=== PATIENT | male | born 1940 | race Caucasian/White ===

== ENCOUNTER 2019-04-02 14:23 | Inpatient (IN) ==
[2019-04-02] MEDS ORDERED: SODIUM CHLORIDE 0.9% 500 ML IV ONE (15:23)
[2019-04-02 15:57] LABS: Base Excess VBG 2.9 mEq/L; HCO3 VBG 29 mmol/L; Oxygen Saturation VBG < 60.0 %; PCO2 VBG 49 mmHg (38-50); PO2 VBG 26 mmHg; pH VBG 7.38 (7.36-7.41)
[2019-04-02 16:06] LABS: INR 1.1 (0.9-1.1); Partial Thromboplastin Time 25.9 Seconds (21.0-31.0); Prothrombin Time 11.5 Seconds (9.0-12.0)
[2019-04-02 16:12] LABS: Alanine Aminotransferase 106 U/L (12-78); Albumin Level 2.7 gm/dl (3.4-5.0); Aspartate Aminotransferase 57 U/L (15-37); Blood Urea Nitrogen 17 mg/dl (7-18); Calcium 8.4 mg/dl (8.5-10.1); Carbon Dioxide 28 mmol/L (21-32); Chloride 105 mmol/L (98-107); Creatinine Clr Calc Pharmacy 67.4 ml/min; Est GFR (African American) 88.4; Est GFR (Non-African American) 76.3; Glucose 102 mg/dl (70-99); Magnesium 2.1 mg/dl (1.8-2.4); Potassium 4.4 mmol/L (3.5-5.1); Sodium 139 mmol/L (136-145)
--- NOTE | 2019-04-02 16:13 | XRay Report ---
XR chest 1V portable CLINICAL HISTORY: SEPSIS dyspnea COMPARISON STUDY: 04/01/2019 FINDINGS: Mild cardiac enlargement. Prior median sternotomy. Lungs are clear. Diaphragms are smooth. IMPRESSION: Chronic and postoperative change. No acute process. ACT 112: Negative or not required by law. The above report was generated using voice recognition software. It may contain grammatical, syntax or spelling errors. Electronically signed by: Jon Carroll M.D. 04/02/2019 4:12 PM
[2019-04-02 16:17] LABS: Albumin Globulin Ratio 0.6 (0.9-2); Alkaline Phosphatase 86 U/L (45-117); Bilirubin,Total 0.3 mg/dl (0.2-1); Globulin 4.3 gm/dl (2.5-4.0); Troponin I < 0.015 ng/ml (0-0.045)
--- NOTE | 2019-04-02 16:20 | Electrocardiogram Report ---
Test Reason : Blood Pressure : / mmHG Vent. Rate : 069 BPM Atrial Rate : 069 BPM P-R Int : 126 ms QRS Dur : 104 ms QT Int : 406 ms P-R-T Axes : -07 060 029 degrees QTc Int : 435 ms Normal sinus rhythm Normal ECG When compared with ECG of 01-APR-2019 14:51, Aberrant conduction is no longer Present Confirmed by Saud Hill ([id number]) on 04/02/2019 4:19:52 PM Referred By: Confirmed By:Saud Hill
[2019-04-02 16:37] LABS: Basophils # (auto) 0.08 K/uL (0-0.2); Basophils % (auto) 0.8 %; Eosinophils # (auto) 0.19 K/uL (0-0.5); Eosinophils % (auto) 1.9 %; Hematocrit (blood only) 38.2 % (42-52); Hemoglobin 12.1 g/dL (14.0-18.0); Immature Granulocytes # (auto) 0.11 K/uL (0.00-0.02); Immature Granulocytes % (auto) 1.1 %; Lymphocytes # (auto) 1.27 K/uL (1.2-3.4); Lymphocytes % (auto) 12.9 %; Mean Corpuscular Hgb Conc 31.7 g/dL (32-36); Mean Corpuscular Volume 94.6 fL (80-100); Mean Platelet Volume 10.5 fL (7.4-10.4); Monocytes # (auto) 1.35 K/uL (0.11-0.59); Monocytes % (auto) 13.8 %; Neutrophils # (auto) 6.81 K/uL (1.4-6.5); Neutrophils % (auto) 69.5 %; Platelet Count 313 K/uL (130-400); RDW Coefficient of Variation 15.1 % (11.5-14.5); RDW Standard Deviation 52.4 fL (36.4-46.3); Red Blood Count 4.04 M/uL (4.7-6.1); White Blood Count 9.81 K/uL (4.8-10.8)
[2019-04-02 16:44] LABS: iSTAT Creatinine 0.9 mg/dl (0.6-1.3); iSTAT Hemoglobin 11.6 g/dl (14.0-18.0); iSTAT Ionized Calcium 1.12 mmol/l (1.12-1.32); iSTAT Potassium 4.4 mEq/L (3.3-5.0)
[2019-04-02 17:00] LABS: Appearance Urine Clear (Clear); Bacteria Urine Automated Negative (Negative); Bilirubin Urine Negative (Negative); Blood Urine Negative (Negative); Color Urine Yellow; Glucose Urine UA Negative (Negative); Ketones Urine Negative (Negative); Leukocyte Esterase Urine Trace (Negative); Nitrite Urine Negative (Negative); Urobilinogen Urine Negative (Negative); pH Urine 7.5 (4.5-7.5)
[2019-04-02 17:02] LABS: Protein Urine 1+ (Negative)
[2019-04-02 17:03] LABS: Sulfosalicylic Acid Urine Positive (Negative)
[2019-04-02] MEDS ORDERED: cefTRIAXone SODIUM 2,000 MG/70 ML BAG IV STA (17:18)
--- NOTE | 2019-04-02 18:13 | History & Physical Report ---
Date of Service April 02, 2019 Assessment & Plan (1) Bacteremia: (2) Urinary tract infection: This is an 78-year-old male with a PMH of hypertension, CAD (s/p CABG), NARDA and other medical problems listed below who presents after being informed of E. coli UTI and 1/2 positive blood cultures. -Seen in ED yesterday for dysuria and urinary urgency and found to have abnormal UA. Received dose of Rocephin and discharged home on cefdinir and probiotics -Urine culture from Apr 01 grew e coli with >100,000 CFU/ml with sensitivities to follow. One of two blood cultures from yesterday grew gram negative bacilli with sensitivities to follow -Urinary symptoms have resolved and patient has remained afebrile. Had leukocytosis of 20.78k yesterday and today's white blood cell count has improved to 9.8k. Lactic acid is normal -Plan to continue Rocephin empirically until sensitivities result on blood culture. Another set of cultures were repeated today (3) CAD (coronary artery disease): Continue aspirin, statin, carvedilol (4) HLD (hyperlipidemia): Continue statin, Zetia (5) Blocked tear duct: Continue snf low-dose doxycycline prescribed by fire sprinkler fitter (6) Iron deficiency anemia: Continue iron supplement DVT Ppx: SQ heparin Code status: FULL PCP: Julio César Dispo: Admitted to [facility]. Plan to return home once medically stable. Patient seen in collaboration with Dr. St. Please see addendum. History of Present Illness Chief Complaint: Positive blood cultures Primary Care Provider: Napoleon Angela MD This is an 78-year-old male with a PMH of hypertension, CAD (s/p CABG), NARDA and other medical problems listed below who presents after being informed of positive blood culture. Patient was seen in ED yesterday for chest pain as well as urinary symptoms and UA was abnormal. Was discharged home on cefdinir and probiotics. Urine culture from Apr 01 grew e coli with >100,000 CFU/ml with sensitivities to follow. One of two blood cultures from yesterday grew gram negative bacilli with sensitivities to follow. Patient was called and instructed to return to ED for further IV antibiotic treatment until sensitivities result. Patient feels better since yesterday and has remained afebrile. Had leukocytosis of 20.78k yesterday and was given dose of ceftriaxone in ED and discharged on cefdinir. Today, white blood cell count improved to 9.8k. Denies any chills, lightheadedness, visual changes, chest pain, palpitations, shortness of breath, nausea, vomiting, abdominal pain, diarrhea or constipation. Dysuria and urinary urgency have resolved. Of note, patient has follow-up postoperative appointment at the [facility] on for laminectomy performed this past January. Is agreeable to await culture sensitivities prior to discharge. Discussed with son on the phone, who plans to contact surgeon's office tomorrow and try to reschedule postop appointment. Allergies Allergy/AdvReac Type Severity Reaction Status Date / Time Penicillins Allergy Rash Unverified 04/01/19 12:41 Home Medications Home Medications Medication Instructions Recorded Confirmed Type aspirin [Aspirin Low Dose] 81 mg PO QAM 04/01/19 04/02/19 History cefdinir 300 mg PO BID 10 Days #20 cap 04/01/19 04/02/19 Rx jjgisqel-klt-radxi-vit K-lycop 1 tab PO QAM 04/01/19 04/02/19 History [One-A-Day Men's 50 Plus] Saccharomyces boulardii [Florastor] 250 mg PO QAM 04/02/19 04/02/19 History amlodipine 5 mg PO QAM 04/02/19 04/02/19 History atorvastatin 80 mg PO PM 04/02/19 04/02/19 History calcium carbonate-vitamin D3 1 tab PO QAM 04/02/19 04/02/19 History [Calcium 500 + D] carvedilol 3.125 mg PO BID 04/02/19 04/02/19 History doxycycline hyclate 50 mg PO QAM 04/02/19 04/02/19 History ezetimibe [Zetia] 10 mg PO HS 04/02/19 04/02/19 History ferrous sulfate 325 mg PO BID 04/02/19 04/02/19 History lisinopril 40 mg PO QAM 04/02/19 04/02/19 History omega 4-nzy-ggr-fish oil [Fish Oil] 1 cap PO QAM 04/02/19 04/02/19 History Past Med/Surg History Medical History Blocked tear duct CAD (coronary artery disease) HLD (hyperlipidemia) HTN (hypertension) Iron deficiency anemia Mitral valve regurgitation Surgical History H/O laminectomy History of colonoscopy History of coronary artery bypass graft Family History Other COPD (chronic obstructive pulmonary disease) Myocardial infarction Social History Preferred Language: Maori Communication Ability: Effective Sample Worker Required: No Beliefs That Will Affect Care: None Current Living Situation: Alone Feels Safe at Home: Yes Safety Concerns: Feels Safe At This Time Smoking Status: Former smoker Do You Dip or Chew Tobacco: No ; Second Hand Exposure: No ; Tobacco Cessation Education Requested by Patient: No Hx Alcohol Use: Yes Alcohol Intake Frequency: Holidays/Special Occasions Hx Substance Use: No Review of Systems Review of Systems: At least ten systems reviewed and negative except as noted in the HPI. Physical Exam Physical Exam: General Appearance: WD/WN, vitals as above, NAD, sitting up in bed, pleasant, conversing easily Head: normocephalic, atraumatic Eyes: normal inspection, PERRL, conjunctivae normal, anicteric sclerae ENT: external ear and nose normal, oropharynx normal Neck: trachea midline, no thyromegaly normal visual inspection Respiratory: lungs clear to auscultation, no wheeze, rales, rhonchi. Normal insp/exp effort, no accessory muscle use Cardiovascular: regular rate, rhythm, no murmur, normal peripheral pulses. Vess els: no JVD or carotid bruit Chest: normal inspection of chest Abdomen/GI: normal bowel sounds, soft, nontender, no hepatosplenomegaly Extremities/Musculoskeletal: no cyanosis or clubbing, extremities motor strength 5/5 Neurologic: PERRL, EOMI, accommodation nl, no face palsy, no dysarthria, CN's II-XI intact bilaterally and moves all extremities Psychiatric: A+Ox3, euthymic affect Skin: no rashes, normal color, warm/dry Results & Data Vital Signs (Past 12 Hours) Vital Signs Temp Pulse Pulse Resp BP BP Pulse Ox 04/02/19 17:33 71 20 137/73 97 04/02/19 15:54 98 04/02/19 14:38 36.8 C 80 20 142/74 H 96 Laboratory Results Short CBC 04/02/19 Range/Units 15:43 WBC 9.81 (4.8-10.8) K/uL Hgb 12.1 L (14.0-18.0) g/dL Hct 38.2 L (42-52) % Plt Count 313 (130-400) K/uL BMP 04/02/19 15:43 Sodium 139 Potassium 4.4 Chloride 105 Carbon Dioxide 28 BUN 17 Creatinine 0.94 Glucose 102 H Calcium 8.4 L Cardiac Enzymes 04/02/19 Range/Units 15:43 Troponin I < 0.015 (0-0.045) ng/ml Liver Function 04/02/19 Range/Units 15:43 Total Bilirubin 0.3 (0.2-1) mg/dl AST 57 H (15-37) U/L ALT 106 H (12-78) U/L Alkaline Phosphatase 86 (45-117) U/L Albumin 2.7 L (3.4-5.0) gm/dl Urine 04/02/19 Range/Units 16:25 Urine Color Yellow Urine Appearance Clear (Clear) Urine pH 7.5 (4.5-7.5) Ur Specific [place] 1.020 (1.000-1.030) Urine Protein 1+ H (Negative) Urine Glucose (UA) Negative (Negative) Diagnostic Findings CXR: IMPRESSION: Chronic and postoperative change. No acute process. Supervising Physician Co-Signing Physician Notes Pt was seen and examined. Agreed with Tanna JACKSON exam, assessment and plan. 78-year-old male with a PMH of hypertension, CAD (s/p CABG), NARDA presents to the ER after calling for positive blood culture. Pt was in the ER yesterday for dysuria and urinary urgency. Urine cx and blood cx were collected in the ER and pt was discharged home. He received a call for positive urine cx and blood cx. Urine cx grew E.coli. Continue IV Rocephin. Will repeat blood cx. Follow up WBC. Continue monitor closely. MD Alma Rosa (1) Urinary tract infection Hematuria presence: with hematuria Urinary tract infection type: acute cystitis Qualified Code(s): N30.01 - Acute cystitis with hematuria
--- NOTE | 2019-04-02 18:46 | Emergency Department Note ---
Entered by Izabela Babcock acting as a scribe for Minh Harmon MD History of Present Illness General Chief complaint: Abnormal Labs/Diagnostic Testing Stated complaint: SENT BY DR HARMON ABNORMAL LABS Time Seen by Provider: 04/02/19 15:22 Source: patient History of Present Illness Onset (ago): hour(s) 3 Location: head (Abnormal labs) Severity: similar to prior episodes Pain Consistency: + other (episode) Maximum Pain Intensity: 0 Quality: + other (abnormal labs) Exacerbated By: + movement Associated symptoms: + shortness of breath and + other (Positive abnormal labs, resolution of urinary symptoms. Negative diarrhea, palpitations. ); no nausea/vomiting Treatments prior to arrival: other (antibiotic) The patient is an 78 year old male presenting to the Emergency Room complaining of an episode of abnormal labs occurring 3 hours ago. The patient reports that his lab cultures which were done 1 day ago in the [facility] ED were positive. He states that he is still short of breath. He explains that walking around worsens his shortness of breath. He notes that his urinary symptoms which he was experiencing 1 day ago have begun to resolve. He adds that he took an antibiotic GRINDER HAND. The patient denies nausea, vomiting, diarrhea and palpitations. Home Medications Home Medications Medication Instructions Recorded Confirmed Type aspirin [Aspirin Low Dose] 81 mg PO QAM 04/01/19 04/02/19 History cefdinir 300 mg PO BID 10 Days #20 cap 04/01/19 04/02/19 Rx [id number]-vit K-lycop 1 tab PO QAM 04/01/19 04/02/19 History [One-A-Day Men's 50 Plus] Saccharomyces boulardii [Florastor] 250 mg PO QAM 04/02/19 04/02/19 History amlodipine 5 mg PO QAM 04/02/19 04/02/19 History atorvastatin 80 mg PO PM 04/02/19 04/02/19 History calcium carbonate-vitamin D3 1 tab PO QAM 04/02/19 04/02/19 History [Calcium 500 + D] carvedilol 3.125 mg PO BID 04/02/19 04/02/19 History doxycycline hyclate 50 mg PO QAM 04/02/19 04/02/19 History ezetimibe [Zetia] 10 mg PO HS 04/02/19 04/02/19 History ferrous sulfate 325 mg PO BID 04/02/19 04/02/19 History lisinopril 40 mg PO QAM 04/02/19 04/02/19 History omega [id number]-avq-rpz-fish oil [Fish Oil] 1 cap PO QAM 04/02/19 04/02/19 History Allergies Allergy/AdvReac Type Severity Reaction Status Date / Time Penicillins Allergy Rash Unverified 04/01/19 12:41 Past Med/Surg History Medical History Blocked tear duct CAD (coronary artery disease) HLD (hyperlipidemia) HTN (hypertension) Iron deficiency anemia Mitral valve regurgitation Surgical History H/O laminectomy History of colonoscopy History of coronary artery bypass graft Family History Other COPD (chronic obstructive pulmonary disease) Myocardial infarction Social History Preferred Language: Cuban Communication Ability: Effective Brick Chimney Supervisor Required: No Beliefs That Will Affect Care: None Current Living Situation: Alone Feels Safe at Home: Yes Safety Concerns: Feels Safe At This Time Smoking Status: Former smoker Do You Dip or Chew Tobacco: No ; Second Hand Exposure: No ; Tobacco Cessation Education Requested by Patient: No Hx Alcohol Use: Yes Alcohol Intake Frequency: Holidays/Special Occasions Hx Substance Use: No Review of Systems See HPI for pertinent positives & negatives. and A total of 10 systems reviewed and were otherwise negative Physical Exam Vital Signs Vital Signs - 24 hr 04/02/19 14:38 04/02/19 15:54 04/02/19 17:33 Temperature 36.8 C Temperature Source Oral Pulse Rate 80 Pulse Rate [Left Finger] 71 Respiratory Rate 20 20 Respiratory Effort / Characteristics Non-Labored Respiratory Depth Normal Blood Pressure 142/74 H Blood Pressure [Left Arm] 137/73 Blood Pressure Mean 96 Blood Pressure Mean [Left Arm] 94 Pulse Oximetry 96 98 97 Oxygen Delivery Method Room Air Room Air Room Air Sepsis Recent Fever Within 48 Hours No Sepsis Action Taken by Nursing No Action Required GENERAL: Awake, alert, fatigued-appearing, in no distress HENT: Normocephalic, atraumatic. Oropharynx with dry mucous membranes and otherwise unremarkable. EYES: Normal conjunctiva. Sclera non-icteric. NECK: Supple. No nuchal rigidity. FROM. No JVD. RESPIRATORY: CTAB. CARDIAC: Regular rate, normal rhythm. Extremities warm and well perfused. Pulses equal. ABDOMEN: Soft, non-distended. No tenderness to palpation. No rebound or g uarding. No masses. RECTAL: Deferred. MUSCULOSKELETAL: Chest examination reveals no tenderness. The back is symmetrical on inspection without obvious abnormality. There is no CVA tenderness to palpation. No joint edema. LOWER EXTREMITIES: Calves are equal size bilaterally and non-tender. No edema. N o discoloration. NEURO: Normal sensorium. No sensory or motor deficits noted. SKIN: No rash or jaundice noted. Course Course 1610: The patient was evaluated in room D3B, and a complete history and physical examination were performed. 1716: I discussed the patients case with Tanna Badillo PA-C. Dr. P[facility] will evaluate the patient for further management. 1722: I updated the patient at this time. Administered Medications Atorvastatin Calcium (Lipitor) 80 mg PO PM AMISHA Stop: 05/02/19 20:59 Last Admin: 04/02/19 20:12 Dose: 80 mg Documented by: [id number] Carvedilol (Coreg) 3.125 mg PO BID AMISHA Stop: 05/02/19 20:59 Last Admin: 04/02/19 20:13 Dose: 3.125 mg Documented by: [id number] Ezetimibe (Zetia) 10 mg PO HS AMISHA Stop: 05/02/19 20:59 Last Admin: 04/02/19 20:14 Dose: 10 mg Documented by: [id number] Ferrous Sulfate (Feosol) 325 mg PO 0700,2100 AMISHA Stop: 05/02/19 20:59 Last Admin: 04/02/19 20:14 Dose: 325 mg Documented by: [id number] Heparin Sodium (Porcine) (Heparin Sodium (Porcine)) 5,000 units SQ Q8 AMISHA Stop: 05/02/19 21:59 Last Admin: 04/02/19 20:16 Dose: 5,000 units Documented by: [id number] Cosigned by: [id number] Saccharomyces Boulardii (Florastor) 250 mg PO BID AMISHA Stop: 05/02/19 20:59 Last Admin: 04/02/19 20:12 Dose: 250 mg Documented by: [id number] Discontinued Medications Sodium Chloride (Nss) 500 mls @ 999 mls/hr IV .Q31M ONE Stop: 04/02/19 15:53 Last Infusion: 04/02/19 17:31 Dose: 0 mls/hr Documented by: [id number] Admin: 04/02/19 16:20 Dose: 999 mls/hr Documented by: [id number] Ceftriaxone Sodium (Rocephin) 2,000 mg in 70 mls @ 140 mls/hr IV NOW STA Stop: 04/02/19 17:47 Last Infusion: 04/02/19 18:04 Dose: 0 mls/hr Documented by: [id number] Admin: 04/02/19 17:31 Dose: 140 mls/hr Documented by: [id number] Medical Decision Making Differential Diagnosis Differential Diagnosis includes but is not limited to dehydration, stroke, anemia, hypoglycemia, hyponatremia, hypernatremia, urinary tract infection, pneumonia, bronchitis, sepsis, gastroenteritis, additional abdominal pathology, metabolic abnormalities and infections. Medical Records Attestation: I reviewed the patient's medical records. Home Medications Current Medication List: was personally reviewed by me Laboratory Data Attestation: I reviewed the patient's lab results. Result diagrams: 04/02/19 15:43 04/02/19 15:43 Lab Results 04/02/19 04/02/19 04/02/19 Range/Units 15:43 15:43 15:43 WBC 9.81 (4.8-10.8) K/uL RBC 4.04 L (4.7-6.1) M/uL Hgb 12.1 L (14.0-18.0) g/dL POC Hgb (14.0-18.0) g/dl Hct 38.2 L (42-52) % POC Hct (42-52) % MCV 94.6 (80-100) fL MCH 30.0 (25-34) pg MCHC 31.7 L (32-36) g/dL RDW Std Deviation 52.4 H (36.4-46.3) fL RDW Coeff of Scott 15.1 H (11.5-14.5) % Plt Count 313 (130-400) K/uL MPV 10.5 H (7.4-10.4) fL Immature Gran % (Auto) 1.1 % Neut % (Auto) 69.5 % Lymph % (Auto) 12.9 % [place] % (Auto) 13.8 % Eos % (Auto) 1.9 % Baso % (Auto) 0.8 % Immature Gran # (Auto) 0.11 H (0.00-0.02) K/uL Neut # (Auto) 6.81 H (1.4-6.5) K/uL Lymph # (Auto) 1.27 (1.2-3.4) K/uL [place] # (Auto) 1.35 H (0.11-0.59) K/uL Eos # (Auto) 0.19 (0-0.5) K/uL Baso # (Auto) 0.08 (0-0.2) K/uL PT 11.5 (9.0-12.0) Seconds INR 1.1 (0.9-1.1) APTT 25.9 (21.0-31.0) Seconds PTT Ratio 1.0 VBG pH (7.36-7.41) VBG pCO2 (38-50) mmHg VBG pO2 mmHg VBG HCO3 mmol/L VBG O2 Saturation % VBG Base Excess mEq/L Barometric Pressure mm/Hg POC Sodium (135-144) mEq/L Sodium 139 (136-145) mmol/L POC Potassium (3.3-5.0) mEq/L Potassium 4.4 (3.5-5.1) mmol/L POC Chloride (101-112) mEq/L Chloride 105 (98-107) mmol/L Carbon Dioxide 28 (21-32) mmol/L POC Total CO2 (24-31) mEq/l Anion Gap 6.0 (3-11) POC Anion Gap (16-25) mmol/L POC BUN (7-18) mg/dl BUN 17 (7-18) mg/dl Creatinine 0.94 (0.6-1.4) mg/dl POC Creatinine (0.6-1.3) mg/dl Est Cr Clr Drug Dosing 67.4 ml/min Est GFR ( Amer) 88.4 Est GFR (Non-Af Amer) 76.3 BUN/Creatinine Ratio 18.0 (10-20) Glucose 102 H (70-99) mg/dl POC Glucose (other) (70-99) mg/dl Lactate (0.4-2.0) mmol/L Calcium 8.4 L (8.5-10.1) mg/dl POC Ioniz Calcium Ronit (1.12-1.32) mmol/l Phosphorus 3.0 (2.5-4.9) mg/dl Magnesium 2.1 (1.8-2.4) mg/dl Total Bilirubin 0.3 (0.2-1) mg/dl AST 57 H (15-37) U/L ALT 106 H (12-78) U/L Alkaline Phosphatase 86 (45-117) U/L Troponin I < 0.015 (0-0.045) ng/ml Total Protein 7.0 (6.4-8.2) gm/dl Albumin 2.7 L (3.4-5.0) gm/dl Globulin 4.3 H (2.5-4.0) gm/dl Albumin/Globulin Ratio 0.6 L (0.9-2) Urine Color Urine Appearance (Clear) Urine pH (4.5-7.5) Ur Specific [place] (1.000-1.030) Urine Protein (Negative) Urine Glucose (UA) (Negative) Urine Ketones (Negative) Urine Blood (Negative) Urine Nitrite (Negative) Urine Bilirubin (Negative) Urine Urobilinogen (Negative) Ur Leukocyte Esterase (Negative) Urine WBC (Auto) (0-5) /hpf Urine RBC (Auto) (0-4) /hpf U Hyaline Cast (Auto) (0-5) /lpf U Epithel Cells (Auto) (0-5) /lpf Urine Bacteria (Auto) (Negative) 04/02/19 04/02/19 04/02/19 Range/Units 15:43 15:43 16:25 WBC (4.8-10.8) K/uL RBC (4.7-6.1) M/uL Hgb (14.0-18.0) g/dL POC Hgb (14.0-18.0) g/dl Hct (42-52) % POC Hct (42-52) % MCV (80-100) fL MCH (25-34) pg MCHC (32-36) g/dL RDW Std Deviation (36.4-46.3) fL RDW Coeff of Scott (11.5-14.5) % Plt Count (130-400) K/uL MPV (7.4-10.4) fL Immature Gran % (Auto) % Neut % (Auto) % Lymph % (Auto) % [place] % (Auto) % Eos % (Auto) % Baso % (Auto) % Immature Gran # (Auto) (0.00-0.02) K/uL Neut # (Auto) (1.4-6.5) K/uL Lymph # (Auto) (1.2-3.4) K/uL [place] # (Auto) (0.11-0.59) K/uL Eos # (Auto) (0-0.5) K/uL Baso # (Auto) (0-0.2) K/uL PT (9.0-12.0) Seconds INR (0.9-1.1) APTT (21.0-31.0) Seconds PTT Ratio VBG pH 7.38 (7.36-7.41) VBG pCO2 49 (38-50) mmHg VBG pO2 26 mmHg VBG HCO3 29 mmol/L VBG O2 Saturation < 60.0 % VBG Base Excess 2.9 mEq/L Barometric Pressure 729.1 mm/Hg POC Sodium (135-144) mEq/L Sodium (136-145) mmol/L POC Potassium (3.3-5.0) mEq/L Potassium (3.5-5.1) mmol/L POC Chloride (101-112) mEq/L Chloride (98-107) mmol/L Carbon Dioxide (21-32) mmol/L POC Total CO2 (24-31) mEq/l Anion Gap (3-11) POC Anion Gap (16-25) mmol/L POC BUN (7-18) mg/dl BUN (7-18) mg/dl Creatinine (0.6-1.4) mg/dl POC Creatinine (0.6-1.3) mg/dl Est Cr Clr Drug Dosing ml/min Est GFR ( Amer) Est GFR (Non-Af Amer) BUN/Creatinine Ratio (10-20) Glucose (70-99) mg/dl POC Glucose (other) (70-99) mg/dl Lactate 0.8 (0.4-2.0) mmol/L Calcium (8.5-10.1) mg/dl POC Ioniz Calcium Ronit (1.12-1.32) mmol/l Phosphorus (2.5-4.9) mg/dl Magnesium (1.8-2.4) mg/dl Total Bilirubin (0.2-1) mg/dl AST (15-37) U/L ALT (12-78) U/L Alkaline Phosphatase (45-117) U/L Troponin I (0-0.045) ng/ml Total Protein (6.4-8.2) gm/dl Albumin (3.4-5.0) gm/dl Globulin (2.5-4.0) gm/dl Albumin/Globulin Ratio (0.9-2) Urine Color Yellow Urine Appearance Clear (Clear) Urine pH 7.5 (4.5-7.5) Ur Specific [place] 1.020 (1.000-1.030) Urine Protein 1+ H (Negative) Urine Glucose (UA) Negative (Negative) Urine Ketones Negative (Negative) Urine Blood Negative (Negative) Urine Nitrite Negative (Negative) Urine Bilirubin Negative (Negative) Urine Urobilinogen Negative (Negative) Ur Leukocyte Esterase Trace H (Negative) Urine WBC (Auto) 10-30 H (0-5) /hpf Urine RBC (Auto) 5-10 H (0-4) /hpf U Hyaline Cast (Auto) 1-5 (0-5) /lpf U Epithel Cells (Auto) 10-20 H (0-5) /lpf Urine Bacteria (Auto) Negative (Negative) 04/02/19 Range/Units 16:26 WBC (4.8-10.8) K/uL RBC (4.7-6.1) M/uL Hgb (14.0-18.0) g/dL POC Hgb 11.6 L (14.0-18.0) g/dl Hct (42-52) % POC Hct 34 L (42-52) % MCV (80-100) fL MCH (25-34) pg MCHC (32-36) g/dL RDW Std Deviation (36.4-46.3) fL RDW Coeff of Scott (11.5-14.5) % Plt Count (130-400) K/uL MPV (7.4-10.4) fL Immature Gran % (Auto) % Neut % (Auto) % Lymph % (Auto) % [place] % (Auto) % Eos % (Auto) % Baso % (Auto) % Immature Gran # (Auto) (0.00-0.02) K/uL Neut # (Auto) (1.4-6.5) K/uL Lymph # (Auto) (1.2-3.4) K/uL [place] # (Auto) (0.11-0.59) K/uL Eos # (Auto) (0-0.5) K/uL Baso # (Auto) (0-0.2) K/uL PT (9.0-12.0) Seconds INR (0.9-1.1) APTT (21.0-31.0) Seconds PTT Ratio VBG pH (7.36-7.41) VBG pCO2 (38-50) mmHg VBG pO2 mmHg VBG HCO3 mmol/L VBG O2 Saturation % VBG Base Excess mEq/L Barometric Pressure mm/Hg POC Sodium 138 (135-144) mEq/L Sodium (136-145) mmol/L POC Potassium 4.4 (3.3-5.0) mEq/L Potassium (3.5-5.1) mmol/L POC Chloride 101 (101-112) mEq/L Chloride (98-107) mmol/L Carbon Dioxide (21-32) mmol/L POC Total CO2 27 (24-31) mEq/l Anion Gap (3-11) POC Anion Gap 16.0 (16-25) mmol/L POC BUN 17 (7-18) mg/dl BUN (7-18) mg/dl Creatinine (0.6-1.4) mg/dl POC Creatinine 0.9 (0.6-1.3) mg/dl Est Cr Clr Drug Dosing ml/min Est GFR ( Amer) Est GFR (Non-Af Amer) BUN/Creatinine Ratio (10-20) Glucose (70-99) mg/dl POC Glucose (other) 108 H (70-99) mg/dl Lactate (0.4-2.0) mmol/L Calcium (8.5-10.1) mg/dl POC Ioniz Calcium Ronit 1.12 (1.12-1.32) mmol/l Phosphorus (2.5-4.9) mg/dl Magnesium (1.8-2.4) mg/dl Total Bilirubin (0.2-1) mg/dl AST (15-37) U/L ALT (12-78) U/L Alkaline Phosphatase (45-117) U/L Troponin I (0-0.045) ng/ml Total Protein (6.4-8.2) gm/dl Albumin (3.4-5.0) gm/dl Globulin (2.5-4.0) gm/dl Albumin/Globulin Ratio (0.9-2) Urine Color Urine Appearance (Clear) Urine pH (4.5-7.5) Ur Specific [place] (1.000-1.030) Urine Protein (Negative) Urine Glucose (UA) (Negative) Urine Ketones (Negative) Urine Blood (Negative) Urine Nitrite (Negative) Urine Bilirubin (Negative) Urine Urobilinogen (Negative) Ur Leukocyte Esterase (Negative) Urine WBC (Auto) (0-5) /hpf Urine RBC (Auto) (0-4) /hpf U Hyaline Cast (Auto) (0-5) /lpf U Epithel Cells (Auto) (0-5) /lpf Urine Bacteria (Auto) (Negative) Imaging Data Radiologist's Impression: Radiology results as stated below per my review and the radiologist's interpretation: XR chest 1V portable CLINICAL HISTORY: SEPSIS dyspnea COMPARISON STUDY: 04/01/2019 FINDINGS: Mild cardiac enlargement. Prior median sternotomy. Lungs are clear. Diaphragms are smooth. IMPRESSION: Chronic and postoperative change. No acute process. ACT 112: Negative or not required by law. The above report was generated using voice recognition software. It may contain grammatical, syntax or spelling errors. Electronically signed by: Jon Carroll M.D. 04/02/2019 4:12 PM ECG Data Attestation: I personally reviewed and interpreted this ECG as follows: Indication: + toxicologic Rate (beats per minute): 69 Rhythm: + normal sinus ECG [place]: + Normal ECG ST segments: no ST depression and no ST elevation ECG Findings: + Other (QT-c 435.); no PACs and no PVCs Blood Pressure Blood Pressure Findings: Elevated blood pressure Blood Pressure Disposition: further management by hospitalist LILIA Rawls The patient is a pleasant 78-year-old gentleman with a past medical history of CAD who presents emergency department after being contacted regarding a positive blood culture in the setting of a urinary tract infection growing E. coli after being seen in emergency department yesterday per HPI. Of note, the patient reports feeling improved after being treated yesterday with IV ceftriaxone and discharged with Cefdinir. He does still admit to some generalized weakness and shortness of breath however. On arrival the patient is in no acute distress, afebrile stable vital signs. Exam is otherwise unremarkable. EKG without overt acute ischemia. Chest x-ray negative for acute process with improved left basilar aeration. WBC now within normal limits improved from 20K yesterday. H/H 12.1/38.2 approximate 2 prior values. Platelets within normal limits. VBG unremarkable. Chemistry without acidosis. Lactate 0.8. Electrolytes unremarkable. LFTs still elevated similar to yesterday with AST 57 and ALT 106. Troponin negative/undetectable. UA does appear improved from yesterday with no bacteria. I did discuss with the patient upon arrival that given his urine analysis was growing E. coli and he had a blood culture that was growing a gram-negative bacilli it is reasonable to assume that he has bacteremia and admission for IV antibiotics is recommended. The patient was reluctant given he reported he has an appointment on at the [facility] in follow-up for his lumbar fusion performed in January. However he was agreeable to be admitted and reschedule his follow-up appointment. Case was discussed with Stalin Bar PA-C, who evaluate the patient for admission. Given patient's reported improvement and resolution of leukocytosis after treatment yesterday we agree to continue CTX at this time. Impression & Plan Bacteremia, UTI (urinary tract infection), Transaminitis, CAD (coronary artery disease) Discharge Plan Visit Data *Final* Discharge Date/Time: 04/02/19 19:01 Chief Complaint: Abnormal Labs/Diagnostic Testing Stated Complaint: SENT BY DR HARMON, ABNORMAL LABS ED Provider: Minh Harmon Discharge Problem: Bacteremia, UTI (urinary tract infection), Transaminitis, CAD (coronary artery disease) Patient Disposition: Admitted As Inpatient Discharge Instructions Interventions: ED Discharge Assessment Last Done: 04/02/19 19:01 The scribe's documentation has been prepared under my direction and personally reviewed by me in its entirety. I confirm that the note above accurately reflects all work, treatment, procedures, and medical decision making performed by me.
[2019-04-02] MEDS ORDERED: ACETAMINOPHEN 325 MG TAB PO PRN (19:19)
[2019-04-02] MEDS ORDERED: cefTRIAXone SODIUM 1,000 MG in DEXTROSE 5% 50 ML IV SCH (19:19)
[2019-04-02] MEDS ORDERED: POLYETHYLENE (MIRALAX) 17 GM PACK PO PRN (19:19)
[2019-04-02] MEDS: ATORVASTATIN 40 MG TAB PO SCH (20:12)
[2019-04-02] MEDS: SACCHAROMYCES BOULARDII 250 MG CAP PO SCH (20:12)
[2019-04-02] MEDS: carvediloL 3.125 MG TAB PO SCH (20:13)
[2019-04-02] MEDS: FERROUS SULFATE 325 MG TAB PO SCH (20:14)
[2019-04-02] MEDS: EZETIMIBE 10 MG TABLET PO SCH (20:14)
[2019-04-02] MEDS: HEPARIN SOD 5,000 UNIT/0.5 ML VIAL SQ SCH (20:16)
[2019-04-02] MEDS: AMLODIPINE BESYLATE 5 MG TAB PO SCH (23:12)
[2019-04-03] MEDS: HEPARIN SOD 5,000 UNIT/0.5 ML VIAL SQ SCH ×3 (05:42→21:07)
[2019-04-03 06:57] LABS: Hematocrit (blood only) 34.3 % (42-52); Mean Corpuscular Hemoglobin 29.7 pg (25-34); Mean Corpuscular Hgb Conc 32.1 g/dL (32-36); Mean Corpuscular Volume 92.7 fL (80-100); Mean Platelet Volume 10.6 fL (7.4-10.4); Platelet Count 303 K/uL (130-400); RDW Coefficient of Variation 14.9 % (11.5-14.5); RDW Standard Deviation 50.8 fL (36.4-46.3); White Blood Count 6.42 K/uL (4.8-10.8)
[2019-04-03 07:30] LABS: BUN Creatinine Ratio 15.7 (10-20); Creatinine Clr Calc Pharmacy 81.8 ml/min; Est GFR (African American) 98.3; Est GFR (Non-African American) 84.8; Potassium 4.1 mmol/L (3.5-5.1)
[2019-04-03] MEDS: AMLODIPINE BESYLATE 5 MG TAB PO SCH (07:52)
[2019-04-03] MEDS: ASPIRIN 81 MG ECTAB PO SCH (07:52)
[2019-04-03] MEDS: DOXYCYCLINE HYCLATE 50 MG CAP PO SCH (07:52)
[2019-04-03] MEDS: FERROUS SULFATE 325 MG TAB PO SCH ×2 (07:52→20:16)
[2019-04-03] MEDS: MULTIVITAMIN TAB PO SCH (07:52)
[2019-04-03] MEDS: carvediloL 3.125 MG TAB PO SCH ×2 (07:53→20:14)
[2019-04-03] MEDS: CALCIUM CARBONATE 1250MG TAB PO SCH (07:53)
[2019-04-03] MEDS: lisinopriL 40 MG TAB PO SCH (07:54)
[2019-04-03] MEDS: CALCIUM 600MG + VIT D 400 IU TAB PO SCH (07:54)
[2019-04-03] MEDS: SACCHAROMYCES BOULARDII 250 MG CAP PO SCH ×2 (07:54→20:13)
[2019-04-03] MEDS: OMEGA-3 (PURIFIED FISH OIL) 1 GM CAP PO SCH (07:54)
[2019-04-03] MEDS ORDERED: AMLODIPINE BESYLATE 5 MG TAB PO SCH (09:00)
[2019-04-03] MEDS ORDERED: SACCHAROMYCES BOULARDII 250 MG CAP PO SCH (09:00)
[2019-04-03] MEDS ORDERED: cefTRIAXone SODIUM 2,000 MG in DEXTROSE 5% 50 ML IV SCH (17:00)
--- NOTE | 2019-04-03 17:04 | Hospitalist Progress Note ---
Date of Service April 03, 2019 Assessment & Plan (1) Bacteremia: E.coli bacteremia (2) Urinary tract infection: This is an 78-year-old male with a PMH of hypertension, CAD (s/p CABG), NARDA and other medical problems listed below who presents after being informed of E. coli UTI and 1/2 positive blood cultures initially drawn on 04/01/2019 -patient was sent to the hospital by primary care provider on 04/02/2019 with leukocytosis of 20,000 -patient denied fevers at home -currently has been on ceftriaxone 2000 mg q24 hours for urinary tract infection and bacteremia, and concurrently has been on chronic doxycycline 50 mg daily for ophthalmological issues; blood cultures repeated on 04/02/2019 -white blood cell counts have normalized -the 04/01/2019 blood cultures has speciated to be pansensitive E.coli as in the urine cultures as of 04/03/2019 -continue IV ceftriaxone for now and will consult Infectious Disease and length and duration of antibiotic treatment (3) Blocked tear duct: Continue snf low-dose doxycycline 50 mg daily as prescribed by bore mill operator (4) CAD (coronary artery disease): Continue aspirin, statin, carvedilol (5) HLD (hyperlipidemia): Continue statin, Zetia (6) Iron deficiency anemia: Continue iron supplement DVT Ppx: SQ heparin Code status: FULL PCP: Julio César Subjective afebrile. patient denies further dysuria. no abdomen pain. no vomiting. no nausea. no shortness of breath. no chest pain. no dizziness. no lightheadedness Review of Systems Review of Systems: All systems reviewed & are unremarkable except as noted in HPI & below Physical Exam Constitutional: WD/WN, vitals as above Eyes: PERRL, conjunctivae normal, anicteric sclerae EOM intact bilaterally ENMT: external ear and nose normal, oropharynx normal Neck: normal visual inspection Respiratory: normal respiratory effort, lungs clear to auscultation Cardiovascular: Rate/Rhythm: regular rate and regular rhythm Gastrointestinal (Abdomen): normal bowel sounds, soft, nontender, no hepatosplenomegaly Musculoskeletal: Head/Neck/Chest: normocephalic and head atraumatic Neurologic: PERRL, EOMI, accommodation nl, no face palsy, no dysarthria CN's II-XI intact bilaterally Psychiatric: A+Ox3, euthymic affect Results & Data Vital Signs (Past 12 Hours) Vital Signs Temp Pulse Pulse Resp BP Pulse Ox 04/03/19 16:26 67 04/03/19 15:02 36.6 C 70 18 130/63 94 04/03/19 11:41 36.3 C L 71 18 178/79 H 96 (1) Urinary tract infection Hematuria presence: with hematuria Urinary tract infection type: acute cystitis Qualified Code(s): N30.01 - Acute cystitis with hematuria
[2019-04-03] MEDS: EZETIMIBE 10 MG TABLET PO SCH (20:13)
[2019-04-03] MEDS: ATORVASTATIN 40 MG TAB PO SCH (20:17)
[2019-04-04] MEDS: HEPARIN SOD 5,000 UNIT/0.5 ML VIAL SQ SCH (06:32)
[2019-04-04] MEDS: CALCIUM 600MG + VIT D 400 IU TAB PO SCH (06:33)
[2019-04-04] MEDS: FERROUS SULFATE 325 MG TAB PO SCH (06:33)
[2019-04-04] MEDS: CALCIUM CARBONATE 1250MG TAB PO SCH (06:34)
[2019-04-04 07:33] LABS: Hematocrit (blood only) 36.7 % (42-52); Hemoglobin 11.6 g/dL (14.0-18.0); Mean Corpuscular Hemoglobin 29.3 pg (25-34); Mean Corpuscular Hgb Conc 31.6 g/dL (32-36); Mean Corpuscular Volume 92.7 fL (80-100); Mean Platelet Volume 10.4 fL (7.4-10.4); Platelet Count 355 K/uL (130-400); RDW Coefficient of Variation 14.8 % (11.5-14.5); RDW Standard Deviation 50.2 fL (36.4-46.3); Red Blood Count 3.96 M/uL (4.7-6.1); White Blood Count 6.78 K/uL (4.8-10.8)
[2019-04-04] MEDS: carvediloL 3.125 MG TAB PO SCH (07:43)
[2019-04-04] MEDS: AMLODIPINE BESYLATE 5 MG TAB PO SCH (07:43)
[2019-04-04] MEDS: OMEGA-3 (PURIFIED FISH OIL) 1 GM CAP PO SCH (07:43)
[2019-04-04] MEDS: DOXYCYCLINE HYCLATE 50 MG CAP PO SCH (07:43)
[2019-04-04] MEDS: MULTIVITAMIN TAB PO SCH (07:43)
[2019-04-04] MEDS: lisinopriL 40 MG TAB PO SCH (07:43)
[2019-04-04] MEDS: SACCHAROMYCES BOULARDII 250 MG CAP PO SCH (07:44)
[2019-04-04] MEDS: ASPIRIN 81 MG ECTAB PO SCH (07:44)
[2019-04-04 08:08] LABS: BUN Creatinine Ratio 13.9 (10-20); Calcium 8.6 mg/dl (8.5-10.1); Creatinine Clr Calc Pharmacy 73.2 ml/min; Est GFR (Non-African American) 81.1
--- NOTE | 2019-04-04 09:19 | Infectious Disease Consult ---
Date of Consultation April 04, 2019 Assessment & Plan (1) E. coli sepsis: can continue rocephin while in hospital. upon d/c would transition back to previously prescribed cefdinir to complete 10 day course, he has abx at home. ok for d/c from ID standpoint when otherwise stable. (2) UTI (urinary tract infection): History of Present Illness Attending Physician: Dony Arteaga MD pt initially presented to ER on 04/01 with dysuria, UA done >30 wbc +2 bacteria, blood and urine cultures done, given ctx x 1, d/c home with 10 days cefdinir, tolerated well. was called on 04/02 as blood culture + E. coli, he was admitted an d has been on ctx since admission. repeat UA 10-30 wbc, repeat blood cultures negative to date. feeling much better, asking to go home. no f/c. no abd pain, no n/v/d. no gu symptoms currently, eating without difficulty. E.coli resistant to tmp and amp only. tolerating abx. ID consulted for duration on abx. Allergies Allergy/AdvReac Type Severity Reaction Status Date / Time Penicillins Allergy Rash Unverified 04/04/19 08:43 Home Medications Home Medications Medication Instructions Recorded Confirmed Type aspirin [Aspirin Low Dose] 81 mg PO QAM 04/01/19 04/02/19 History cefdinir 300 mg PO BID 10 Days #20 cap 04/01/19 04/02/19 Rx [id number]-[id number]-vit K-lycop 1 tab PO QAM 04/01/19 04/02/19 History [One-A-Day Men's 50 Plus] Saccharomyces boulardii [Florastor] 250 mg PO QAM 04/02/19 04/02/19 History amlodipine 5 mg PO QAM 04/02/19 04/02/19 History atorvastatin 80 mg PO PM 04/02/19 04/02/19 History calcium carbonate-vitamin D3 1 tab PO QAM 04/02/19 04/02/19 History [Calcium 500 + D] carvedilol 3.125 mg PO BID 04/02/19 04/02/19 History doxycycline hyclate 50 mg PO QAM 04/02/19 04/02/19 History ezetimibe [Zetia] 10 mg PO HS 04/02/19 04/02/19 History ferrous sulfate 325 mg PO BID 04/02/19 04/02/19 History lisinopril 40 mg PO QAM 04/02/19 04/02/19 History omega 6-aon-suw-fish oil [Fish Oil] 1 cap PO QAM 04/02/19 04/02/19 History Patient History Medical History Blocked tear duct CAD (coronary artery disease) (Acute) HLD (hyperlipidemia) HTN (hypertension) Iron deficiency anemia Mitral valve regurgitation Surgical History H/O laminectomy History of colonoscopy History of coronary artery bypass graft Family History Other COPD (chronic obstructive pulmonary disease) Myocardial infarction Social History Preferred Language: Samoan Communication Ability: Effective Rewinder Operator Required: No Beliefs That Will Affect Care: None Current Living Situation: Alone Feels Safe at Home: Yes Safety Concerns: Feels Safe At This Time Smoking Status: Former smoker Do You Dip or Chew Tobacco: No ; Second Hand Exposure: No ; Tobacco Cessation Education Requested by Patient: No Hx Alcohol Use: Yes Alcohol Intake Frequency: Holidays/Special Occasions Hx Substance Use: No Review of Systems Review of Systems: All systems reviewed & are unremarkable except as noted in HPI & below Physical Exam Constitutional: WD/WN, vitals as above Eyes: PERRL, conjunctivae normal, anicteric sclerae ENMT: external ear and nose normal, oropharynx normal Neck: normal visual inspection Respiratory: normal respiratory effort, lungs clear to auscultation Cardiovascular: RRR, no murmur, no edema Gastrointestinal (Abdomen): normal bowel sounds, soft, nontender, no hepatosplenomegaly Musculoskeletal: no cyanosis or clubbing, extremities motor strength 5/5 Skin: no rashes, warm and dry Psychiatric: A+Ox3, euthymic affect Results & Data Vital Signs (Past 12 Hours) Vital Signs Temp Pulse Pulse Resp BP BP Pulse Ox 04/04/19 07:28 36.8 C 69 18 159/75 H 97 04/04/19 07:15 60 04/04/19 04:00 36.5 C 63 20 151/70 H 95 04/04/19 00:53 62 04/03/19 23:34 36.8 C 63 20 156/75 H 96 PG Care Time/CCT Total # of Minutes Spent Total Time Spent with Patient: Total time spent is greater than 50% in coordination of care (as documented) at patient's floor/unit and/or counseling patient:
--- NOTE | 2019-04-04 11:53 | Hospitalist Progress Note ---
Date of Service April 04, 2019 Assessment & Plan (1) Bacteremia: E.coli bacteremia (2) Urinary tract infection: This is an 78-year-old male with a PMH of hypertension, CAD (s/p CABG), NARDA and other medical problems listed below who presents after being informed of E. coli UTI and 1/2 positive blood cultures initially drawn on 04/01/2019 -patient was sent to the hospital by primary care provider on 04/02/2019 with leukocytosis of 20,000 -patient denied fevers at home -currently has been on ceftriaxone 2000 mg q24 hours for urinary tract infection and bacteremia, and concurrently has been on chronic doxycycline 50 mg daily for ophthalmological issues; blood cultures repeated on 04/02/2019 -white blood cell counts have normalized as of 04/03/2019 -the 04/01/2019 blood cultures has speciated to be pansensitive E.coli as in the urine cultures as of 04/03/2019 -last dose of IV antibiotics ceftriaxone on 04/04/2019; patient should continue cefdinir 300 mg twice a day to complete 10 day course of antibiotics as recommend by infectious disease doctor -patient is discharged to home and should make follow up appointment with primary care doctor in the next 1 to 2 weeks (3) CAD (coronary artery disease): Continue aspirin, statin, carvedilol (4) HLD (hyperlipidemia): Continue statin, Zetia (5) Blocked tear duct: Continue intermediate designer low-dose doxycycline 50 mg daily as prescribed by police department secretary (6) Iron deficiency anemia: Continue iron supplement DVT Ppx: SQ heparin Code status: FULL Discharge Diagnosis: E.coli bacteremia, Urinary tract infection, CAD (coronary artery disease) without angina pectoris Subjective Patient seen and examined at bedside. afebrile. no distress. no chest pain. no shortness of breath. no abdominal pain. no nausea. no vomiting. patient was evaluated by infectious disease doctor. discharge plans dicsussed with patient Review of Systems Review of Systems: All systems reviewed & are unremarkable except as noted in HPI & below Physical Exam Constitutional: WD/WN, vitals as above Eyes: PERRL, conjunctivae normal, anicteric sclerae EOM intact bilaterally ENMT: external ear and nose normal, oropharynx normal Neck: normal visual inspection Respiratory: normal respiratory effort, lungs clear to auscultation Cardiovascular: Rate/Rhythm: regular rate and regular rhythm Gastrointestinal (Abdomen): normal bowel sounds, soft, nontender, no hepatosplenomegaly Musculoskeletal: Head/Neck/Chest: normocephalic and head atraumatic Neurologic: PERRL, EOMI, accommodation nl, no face palsy, no dysarthria CN's II-XI intact bilaterally Psychiatric: A+Ox3, euthymic affect Results & Data Vital Signs (Past 12 Hours) Vital Signs Temp Pulse Pulse Resp BP Pulse Ox 04/04/19 11:25 36.3 C L 63 18 148/69 H 97 04/04/19 07:28 36.8 C 69 18 159/75 H 97 04/04/19 07:15 60 04/04/19 04:00 36.5 C 63 20 151/70 H 95 04/04/19 00:53 62 (1) Urinary tract infection Hematuria presence: with hematuria Urinary tract infection type: acute cystitis Qualified Code(s): N30.01 - Acute cystitis with hematuria
--- NOTE | 2019-04-04 11:55 | Discharge Summary ---
Date of Service April 04, 2019 Admission HPI Per Admitting Provider This is an 78-year-old male with a PMH of hypertension, CAD (s/p CABG), NARDA and other medical problems listed below who presents after being informed of positive blood culture. Patient was seen in ED yesterday for chest pain as well as urinary symptoms and UA was abnormal. Was discharged home on cefdinir and probiotics. Urine culture from Apr 01 grew e coli with >100,000 CFU/ml with sensitivities to follow. One of two blood cultures from yesterday grew gram negative bacilli with sensitivities to follow. Patient was called and instructed to return to ED for further IV antibiotic treatment until sensitivities result. Patient feels better since yesterday and has remained afebrile. Had leukocytosis of 20.78k yesterday and was given dose of ceftriaxone in ED and discharged on cefdinir. Today, white blood cell count improved to 9.8k. Denies any chills, lightheadedness, visual changes, chest pain, palpitations, shortness of breath, nausea, vomiting, abdominal pain, diarrhea or constipation. Dysuria and urinary urgency have resolved. Of note, patient has follow-up postoperative appointment at the [facility] on for laminectomy performed this past January. Is agreeable to await culture sensitivities prior to discharge. Discussed with son on the phone, who plans to contact surgeon's office tomorrow and try to reschedule postop appointment. Admission Exam Per Admitting Provider General Appearance: WD/WN, vitals as above, NAD, sitting up in bed, pleasant, conversing easily Head: normocephalic, atraumatic Eyes: normal inspection, PERRL, conjunctivae normal, anicteric sclerae ENT: external ear and nose normal, oropharynx normal Neck: trachea midline, no thyromegaly normal visual inspection Respiratory: lungs clear to auscultation, no wheeze, rales, rhonchi. Normal insp/exp effort, no accessory muscle use Cardiovascular: regular rate, rhythm, no murmur, normal peripheral pulses. Vessels: no JVD or carotid bruit Chest: normal inspection of chest Abdomen/GI: normal bowel sounds, soft, nontender, no hepatosplenomegaly Extremities/Musculoskeletal: no cyanosis or clubbing, extremities motor strength 5/5 Neurologic: PERRL, EOMI, accommodation nl, no face palsy, no dysarthria, CN's II-XI intact bilaterally and moves all extremities Psychiatric: A+Ox3, euthymic affect Skin: no rashes, normal color, warm/dry Principal Diagnosis E.coli bacteremia, Urinary tract infection, CAD (coronary artery disease) without angina pectoris Discharge Exam Constitutional WD/WN, vitals as above Eyes PERRL, conjunctivae normal, anicteric sclerae EOM intact bilaterally ENMT external ear and nose normal, oropharynx normal Neck normal visual inspection Respiratory normal respiratory effort, lungs clear to auscultation Cardiovascular Rate/Rhythm: regular rate and regular rhythm Gastrointestinal (Abdomen) normal bowel sounds, soft, nontender, no hepatosplenomegaly Musculoskeletal Head/Neck/Chest: normocephalic and head atraumatic Neurologic PERRL, EOMI, accommodation nl, no face palsy, no dysarthria CN's II-XI intact bilaterally Psychiatric A+Ox3, euthymic affect Discharge Data Allergies Allergy/AdvReac Type Severity Reaction Status Date / Time Penicillins Allergy Rash Unverified 04/04/19 08:43 Consultations 04/02/19 17:15 ED Decision to Admit Stat 04/03/19 16:58 Consult Infectious Diseases Routine Hospital Course (1) Bacteremia: E.coli bacteremia (2) Urinary tract infection: This is an 78-year-old male with a PMH of hypertension, CAD (s/p CABG), NARDA and other medical problems listed below who presents after being informed of E. coli UTI and 1/2 positive blood cultures initially drawn on 04/01/2019 -patient was sent to the hospital by primary care provider on 04/02/2019 with leukocytosis of 20,000 -patient denied fevers at home -currently has been on ceftriaxone 2000 mg q24 hours for urinary tract infection and bacteremia, and concurrently has been on chronic doxycycline 50 mg daily for ophthalmological issues; blood cultures repeated on 04/02/2019 -white blood cell counts have normalized as of 04/03/2019 -the 04/01/2019 blood cultures has speciated to be pansensitive E.coli as in the urine cultures as of 04/03/2019 -last dose of IV antibiotics ceftriaxone on 04/04/2019; patient should continue cefdinir 300 mg twice a day to complete 10 day course of antibiotics as recommend by infectious disease doctor -patient is discharged to home and should make follow up appointment with primary care doctor in the next 1 to 2 weeks (3) CAD (coronary artery disease): Continue aspirin, statin, carvedilol (4) HLD (hyperlipidemia): Continue statin, Zetia (5) Blocked tear duct: Continue terminal worker low-dose doxycycline 50 mg daily as prescribed by fisheries diver (6) Iron deficiency anemia: Continue iron supplement DVT Ppx: SQ heparin Code status: FULL Discharge Diagnosis: E.coli bacteremia, Urinary tract infection, CAD (coronary artery disease) without angina pectoris Total Time Total Time Spent Total Time Spent (In Minutes): 40 minutes Total Time Includes: Examination of the Patient, Discharge Planning, Medication Reconciliation and Communication With Other Providers Discharge Plan Discharge Items Patient Disposition: Hospice - Home Reason For Visit: BACTEREMIA Discharge Diagnosis: E.coli bacteremia, Urinary tract infection, CAD (coronary artery disease) without angina pectoris Condition on Discharge: Good Activity: Resume your previous activity Non-emergency contact: Primary Care Provider Call non-emergency contact if: you have any medication questions Follow-up/Referrals: Napoleon Angela MD [Primary Care Provider] - Diet: Heart Healthy Addtl Attending Provider Instructions: patient admitted and started on IV antibiotics of ceftriaxone 2grams daily on 04/02/2019, last dose of IV antibiotics on 04/04/2019 patient should continue cefdinir 300 mg twice a day to complete 10 day course of antibiotics as recommend by infectious disease doctor patient is discharged to home and should make follow up appointment with primary care doctor in the next 1 to 2 weeks Pending Studies at Discharge: Yes Studies:: final growth of 04/02/2019 blood cultures are pending. currently no growth to date Stand-Alone Forms: [facility] Medications and DC Order Prescriptions: Continued aspirin [Aspirin Low Dose] 81 mg Tablet,Delayed Release (Dr/Ec) 81 mg PO QAM RF: 0 One-A-Day Men's 50 Plus 400-20-370 mcg Tablet 1 tab PO QAM RF: 0 cefdinir 300 mg capsule 300 mg PO BID 10 Days Qty: 20 RF: 0 doxycycline hyclate 50 mg capsule 50 mg PO QAM RF: 0 amlodipine 5 mg Tablet 5 mg PO QAM RF: 0 carvedilol 3.125 mg Tablet 3.125 mg PO BID RF: 0 ferrous sulfate 325 mg (65 mg iron) Tablet,Delayed Release (Dr/Ec) 325 mg PO BID RF: 0 lisinopril 40 mg Tablet 40 mg PO QAM RF: 0 ezetimibe [Zetia] 10 mg Tablet 10 mg PO HS RF: 0 atorvastatin 80 mg Tablet 80 mg PO PM RF: 0 calcium carbonate-vitamin D3 [Calcium 500 + D] 500 mg(1,250mg) -200 unit Tablet 1 tab PO QAM RF: 0 omega 5-pds-vyb-fish oil [Fish Oil] 360-1,200 mg Capsule,Delayed Release(Dr/Ec) 1 cap PO QAM RF: 0 Florastor 250 mg capsule 250 mg PO QAM RF: 0 Discharge Orders: Discharge Order (Routine); Ordered 04/04/19 Ordered By: Dony Arteaga Admission Data Admit Date/Time: 04/02/19 18:11 Attending Provider: Dony Arteaga Admit Provider: Tanesha St Primary Care Provider: Napoleon Angela Other Providers: Tanesha St ; Emiliana Ovalle
[2019-04-04] MEDS ORDERED: cefTRIAXone SODIUM 2,000 MG in DEXTROSE 5% 50 ML IV ONE (12:00)
== END 2019-04-04 13:30 | disposition home or self-care (01) | DRG 872 ==
LOC: ED 14:23 → SUATTDRO 18:11 → 2N 18:11